=== PATIENT | female | born 2000 | race Two or more races ===

== ENCOUNTER 2020-05-03 00:07 | Emergency (ER) | payer MEDICAID ==
[~2020-05-03] VITALS: Ht 160 cm; Wt 68.0 kg
[2020-05-03 00:30] VITALS: BP 137/77
[2020-05-03] MEDS ORDERED: IBUPROFEN 800 MG TAB PO ONE (03:15)
[2020-05-03] MEDS ORDERED: KETOROLAC TROMETH 60MG/2ML VIAL IM ONE (03:15)
[2020-05-03 03:43] LABS: Amphetamine Screen, Urine NEGATIVE (NEGATIVE); Barbiturate Scree,Urine NEGATIVE (NEGATIVE); Benzodiazephine Screen, Urine NEGATIVE (NEGATIVE); Cannabinoid Screen, Urine NEGATIVE (NEGATIVE); Cocaine Screen, Urine NEGATIVE (NEGATIVE); Opiate Scree,Urine NEGATIVE (NEGATIVE); Phencyclidine Screen, Urine NEGATIVE (NEGATIVE)
[2020-05-03 03:47] LABS: Alcohol, Urine < 3.0 mg/dL (0-10)
== END 2020-05-03 03:35 | disposition home or self-care (01) ==
LOC: ER 00:07
DX: S46.912A Strain of unspecified muscle, fascia and tendon at shoulder and upper arm level, left arm, initial encounter (principal); R51.9 Headache, unspecified; V43.52XA Car driver injured in collision with other type car in traffic accident, initial encounter; Y93.89 Activity, other specified; Y92.89 Other specified places as the place of occurrence of the external cause; Y99.8 Other external cause status
CPT/HCPCS: 70450; 73030; 80307